=== PATIENT | female | born 2000 | race Caucasian/White ===

== ENCOUNTER 2024-02-05 01:41 | Inpatient (IN) ==
[2024-02-05] MEDS ORDERED: LIDOCAINE 1% LOCAL 20 ML VIAL INFIL PRN (01:50)
[2024-02-05] MEDS ORDERED: miSOPROStoL 25 MCG TAB PO ONE (02:00)
--- NOTE | 2024-02-05 02:03 | Labor Progress Brief Note ---
Date of Service February 05, 2024 Subjective @ 40w3d with SROM, followed by onset of ctx roughly Q3 per pt. No VB, good FM. Preg c/b RH neg. Assessment & Plan (1) PROM (premature rupture of membranes): Plan Will admit, labs, epidural prn. Discussed options of either pitocin or cytotec PO. Assuming the first bit of tracing we gather does not show contractions too frequent, would prefer cytotec 25mcg PO as first step. Physical Exam Genitourinary: /-2 ROM for clear fluid confirmed. FHT just getting on monitor, appears 140 mod domo. Woody just beginning to trace. Coding Level of Care Code None Diagnoses PROM (premature rupture of membranes) O42.90
--- NOTE | 2024-02-05 02:58 | Communication Note ---
Date of Service: February 05, 2024 Patient chantell Q2-3m, too frequently for cytotec to be administered. Will ambulate instead as she is getting more uncomfortable and hoping to move around for pain mgmt at this time. If cervix has not changed on future assessment can use pitocin prn, but hopefully the increased discomfort means we don't need augmentation just yet.
[2024-02-05 03:45] LABS: Hematocrit (blood only) 34.1 % (37.0-47.0); Hemoglobin 11.6 g/dl (12.0-16.0); Mean Corpuscular Hemoglobin 30.2 pg (25.0-34.0); Mean Corpuscular Volume 88.8 fL (80.0-100.0); Mean Platelet Volume 11.2 fL (9.4-12.4); Platelet Count 192 K/uL (130-400); RDW Coefficient of Variation 14.3 % (11.5-14.5); Red Blood Count 3.84 M/uL (4.20-5.40); White Blood Count 9.21 K/ul (4.8-10.8)
--- NOTE | 2024-02-05 08:32 | Labor Progress Brief Note ---
Date of Service February 05, 2024 Subjective Getting more uncomfortable, may want epidural soon. Assessment & Plan (1) PROM (premature rupture of membranes): Plan Early labor; patient prefers ambulation and expectant management. Consider pitocin after epidural which patient is considering. Admission and Anticipated Discharge Date Admission Date: February 05, 2024 Physical Exam Genitourinary: /-2 LOF clear continues FHT Cat 1 [place] Q2-3 Results & Data Vital Signs (Past 12 Hours) Vital Signs Temp Pulse Resp BP 02/05/24 07:43 18 02/05/24 07:43 18 02/05/24 07:30 98.2 F 16 02/05/24 07:15 79 123/73 02/05/24 05:48 98.4 F 85 18 120/69 02/05/24 02:00 67 123/73 02/05/24 01:59 18 02/05/24 01:59 98.1 F 18 Coding Level of Care Code None Diagnoses PROM (premature rupture of membranes) O42.90
--- NOTE | 2024-02-05 12:57 | Anesthesiology Consultation ---
Date of Service February 05, 2024 Assessment & Plan Chart Review Chart Review: Acceptable Risk for Surgery, Patient NOT seen in Pre Admission Testing and Acceptable Risk for Labor Epidural Consults Requested none ASA ASA2 Proposed Anesthesia Anesthesia Type: Labor Epidural and CSE History Height/Weight Height: 5 ft 2 in Weight: 66.678 kg Allergies Allergy/AdvReac Type Severity Reaction Status Date / Time No Known Allergies Allergy Verified 02/05/24 02:02 Medications Home Medications Medication Instructions Recorded Confirmed Last Taken ferrous sulfate 325 mg (65 mg 325 mg PO DAILY 02/05/24 02/05/24 02/04/24 iron) tablet (iron) vits no.124-ferrous fum 1 tab PO DAILY 02/05/24 02/05/24 02/04/24 27 mg iron-folic acid 800 mcg tablet ( Vitamin) Past Medical History Medical History Patient denies significant medical history gerd Anemia Exercise / Class Metabolic Activity II 4-5 Yardwork/Stairs/Walk up hill Past Family History Family History Denies family history of Ovarian cancer Breast cancer Colorectal cancer Past Surgical History Surgical History S/P appendectomy Past Anesthesia History No Hx of Anesthesia Complications and No Family Hx of Anesthesia Complications History of PONV No Hx of PONV and No Hx of Motion Sickness Social History Smoking Status: Never smoker Do You Dip or Chew Tobacco: No Hx Alcohol Use: No Hx Substance Use: No substance use type: does not use Physical Exam Vital Signs Last Vital Signs Temp 36.8 C 02/05/24 09:37 Pulse 71 02/05/24 12:32 Resp 20 02/05/24 11:29 BP 119/75 02/05/24 12:32 Testing Laboratory Results 02/05/24 02:35
[2024-02-05] MEDS: LACTATED RINGER'S 1,000 ML IV PRN (15:51)
[2024-02-05] MEDS: LIDOCAINE 2%/EPINEPHRINE 1:200,000 20 ML PF ONE (17:36)
[2024-02-05] MEDS: fentANYL 2 MCG/ML BUPIVacaine 0.125%-NSS 100ML BAG ONE (17:36)
[2024-02-05] MEDS: BUPIVACAINE 0.25% PF 30 ML VIAL ONE (17:36)
[2024-02-05] MEDS: fentaNYL citrate PF 100 MCG/2 ML VIAL ONE (17:36)
[2024-02-05] MEDS ORDERED: ROPIVACAINE 0.5% PF 5 MG/ML 20 ML VIAL EPI PRN (17:47)
[2024-02-05] MEDS ORDERED: LIDOCAINE 2% MPF LOCAL 5 ML VIAL EPI PRN (17:47)
[2024-02-05] MEDS ORDERED: SODIUM CHLORIDE 0.9% PF INJ 10 ML VIAL EPI PRN (17:47)
[2024-02-05] MEDS ORDERED: fentaNYL citrate PF 100 MCG/2 ML VIAL EPI PRN (17:47)
[2024-02-05] MEDS ORDERED: BUPIVACAINE 0.25% PF 30 ML VIAL EPI PRN (17:47)
[2024-02-05] MEDS ORDERED: PROMETHAZINE HCL 6.25 MG in SODIUM CHLORIDE 0.9% 50 ML IV PRN (17:47)
[2024-02-05] MEDS ORDERED: ONDANSETRON INJ 2 MG/ML 2 ML VIAL IV PRN (17:47)
[2024-02-05] MEDS ORDERED: NALOXONE HCL 1 MG in SODIUM CHLORIDE 0.9% 1,000 ML IV PRN (17:47)
[2024-02-05] MEDS ORDERED: ePHEDrine sulfate 50 MG/ML AMP IV PRN (17:47)
[2024-02-05] MEDS ORDERED: NALBUPHINE HCL 5 MG in SYRINGE 0 ML IV PRN (17:47)
[2024-02-05] MEDS ORDERED: NALOXONE HCL 0.4 MG/1 ML VIAL/CARP IV PRN (17:47)
--- NOTE | 2024-02-05 17:59 | Labor Progress Brief Note ---
Date of Service February 05, 2024 Subjective Patient had been admitted after rupture of membranes, hoping to progress naturally and wanted to be able to ambulate etc. Had been chantell, however she has gotten to the point of requesting epidural. After epidural, she was comfortable and agreeable to cervix exam. 4/80/-2. Given minimal cervical change throughout the day today, I recommended that she start pitocin - she agreed. FHT Cat 1. Afebrile. Assessment & Plan Admission and Anticipated Discharge Date Admission Date: February 05, 2024 Results & Data Vital Signs (Past 12 Hours) Vital Signs Temp Pulse Resp BP Pulse Ox 02/05/24 17:55 119 H 95 02/05/24 17:54 75 126/73 02/05/24 17:52 77 125/72 02/05/24 17:50 98 02/05/24 17:50 97 H 02/05/24 17:50 88 128/65 02/05/24 17:48 114 H 113/67 02/05/24 17:45 120 H 98 02/05/24 17:44 120 H 127/74 02/05/24 17:42 96 H 127/82 02/05/24 17:40 98 02/05/24 17:40 88 02/05/24 17:40 76 118/72 02/05/24 17:37 81 121/80 02/05/24 17:35 97 H 133/86 98 02/05/24 17:34 94 H 132/87 02/05/24 17:30 104 H 98 02/05/24 17:25 84 99 02/05/24 17:20 89 98 02/05/24 17:15 69 98 02/05/24 17:10 85 98 02/05/24 17:05 74 99 02/05/24 17:00 87 100 02/05/24 16:59 79 127/84 02/05/24 15:47 20 02/05/24 15:47 20 02/05/24 13:52 75 119/73 02/05/24 13:51 36.6 C 02/05/24 12:32 71 119/75 02/05/24 11:30 36.8 C 02/05/24 11:29 20 02/05/24 11:29 20 02/05/24 10:54 85 119/82 02/05/24 10:02 02/05/24 10:02 02/05/24 09:37 36.8 C 02/05/24 08:38 20 02/05/24 08:38 02/05/24 07:43 18 02/05/24 07:43 02/05/24 07:30 36.8 C 16 02/05/24 07:15 79 123/73 Coding Level of Care Code None
[2024-02-05] MEDS: SODIUM CHLORIDE 0.9% PF INJ 10 ML VIAL ONE (18:08)
[2024-02-05] MEDS: LIDOCAINE 2%/EPINEPHRINE 1:200,000 20 ML PF EPI STA (18:08)
[2024-02-05] MEDS: fentaNYL citrate PF 100 MCG/2 ML VIAL EPI STA (18:08)
[2024-02-05] MEDS: BUPIVACAINE 0.25% PF 30 ML VIAL EPI STA (18:08)
[2024-02-05] MEDS: SODIUM CHLORIDE 0.9% PF INJ 10 ML VIAL EPI STA (18:09)
[2024-02-05] MEDS: OXYTOCIN 30 UNITS/NSS 30 UNITS/500 ML BAG IV PRN (18:34)
[2024-02-05] MEDS: diphenhydrAMINE 50 MG/ML VIAL IV PRN (18:36)
[2024-02-05] MEDS: ePHEDrine sulfate 50 MG/ML AMP ONE (21:07)
--- NOTE | 2024-02-06 00:41 | Labor Progress Brief Note ---
Date of Service February 06, 2024 Subjective Comfortable with epidural, not feeling ctx. Afebrile. FHT Cat 1 [place] Q 2 SVE 6/90/0 Continue labor/augmentation. Assessment & Plan Admission and Anticipated Discharge Date Admission Date: February 05, 2024 Results & Data Vital Signs (Past 12 Hours) Vital Signs Temp Pulse Resp BP Pulse Ox 02/06/24 00:35 61 97 02/06/24 00:30 60 97 02/06/24 00:28 72 108/59 L 02/06/24 00:25 56 L 97 02/06/24 00:20 62 96 02/06/24 00:15 60 97 02/06/24 00:13 57 L 103/59 L 02/06/24 00:10 64 96 02/06/24 00:05 58 L 97 02/06/24 00:00 64 96 02/05/24 23:57 57 L 102/56 L 02/05/24 23:55 63 96 02/05/24 23:50 67 96 02/05/24 23:45 64 96 02/05/24 23:42 54 L 108/59 L 02/05/24 23:40 70 97 02/05/24 23:35 80 96 02/05/24 23:30 68 97 02/05/24 23:27 56 L 109/57 L 02/05/24 23:25 62 96 02/05/24 23:20 69 96 02/05/24 23:15 63 96 02/05/24 23:13 56 L 107/55 L 02/05/24 23:10 57 L 97 02/05/24 23:05 57 L 97 02/05/24 23:00 60 97 02/05/24 22:57 74 111/68 02/05/24 22:55 66 97 02/05/24 22:50 71 97 02/05/24 22:45 72 97 02/05/24 22:42 75 114/70 02/05/24 22:40 60 97 02/05/24 22:35 75 97 02/05/24 22:32 16 02/05/24 22:32 36.9 C 16 02/05/24 22:30 67 97 02/05/24 22:28 62 100/56 L 02/05/24 22:25 75 96 02/05/24 22:20 89 96 02/05/24 22:15 68 96 02/05/24 22:13 64 100/54 L 02/05/24 22:10 63 96 02/05/24 22:05 64 96 02/05/24 22:00 70 96 02/05/24 21:58 67 104/58 L 02/05/24 21:55 70 96 02/05/24 21:50 72 96 02/05/24 21:45 67 97 02/05/24 21:42 80 112/59 L 02/05/24 21:40 67 98 02/05/24 21:35 78 97 02/05/24 21:30 62 98 02/05/24 21:27 61 109/58 L 02/05/24 21:25 63 98 02/05/24 21:20 67 98 02/05/24 21:15 63 98 02/05/24 21:14 75 105/59 L 02/05/24 21:10 69 98 02/05/24 21:05 97 H 98 02/05/24 21:00 92 H 100 02/05/24 20:57 88 16 125/83 02/05/24 20:55 88 99 02/05/24 20:50 77 100 02/05/24 20:45 74 100 02/05/24 20:42 71 118/74 02/05/24 20:40 68 98 02/05/24 20:35 59 L 100 02/05/24 20:30 100 02/05/24 20:30 72 02/05/24 20:30 70 121/73 02/05/24 20:25 71 99 02/05/24 20:20 85 99 02/05/24 20:15 84 98 02/05/24 20:12 75 16 108/71 02/05/24 20:10 86 96 02/05/24 20:05 62 96 02/05/24 20:00 59 L 96 02/05/24 19:57 61 114/59 L 02/05/24 19:55 63 97 02/05/24 19:50 60 96 02/05/24 19:45 62 96 02/05/24 19:42 75 100/56 L 02/05/24 19:40 59 L 96 02/05/24 19:35 60 96 02/05/24 19:30 62 96 02/05/24 19:28 55 L 108/60 02/05/24 19:25 58 L 96 02/05/24 19:20 56 L 97 02/05/24 19:15 77 97 02/05/24 19:12 81 115/69 02/05/24 19:10 63 97 02/05/24 19:05 83 98 02/05/24 19:00 18 02/05/24 19:00 18 02/05/24 19:00 16 02/05/24 19:00 37.1 C 77 16 100 02/05/24 18:57 68 110/63 02/05/24 18:55 59 L 97 02/05/24 18:50 68 98 02/05/24 18:45 59 L 99 02/05/24 18:42 55 L 125/73 02/05/24 18:40 69 100 02/05/24 18:35 76 98 02/05/24 18:30 71 20 98 02/05/24 18:27 67 121/75 02/05/24 18:25 86 99 02/05/24 18:20 97 H 98 02/05/24 18:15 98 H 98 02/05/24 18:12 83 127/55 L 02/05/24 18:10 98 02/05/24 18:10 76 02/05/24 18:10 94 H 162/78 H 02/05/24 18:06 73 120/62 02/05/24 18:05 69 97 02/05/24 18:01 102 H 128/57 L 02/05/24 18:00 92 H 18 97 02/05/24 17:56 18 02/05/24 17:56 18 02/05/24 17:55 119 H 95 02/05/24 17:54 75 126/73 02/05/24 17:52 77 125/72 02/05/24 17:51 18 02/05/24 17:51 18 02/05/24 17:50 98 02/05/24 17:50 97 H 02/05/24 17:50 88 128/65 02/05/24 17:48 114 H 113/67 02/05/24 17:46 18 02/05/24 17:46 18 02/05/24 17:45 120 H 98 02/05/24 17:44 120 H 127/74 02/05/24 17:42 96 H 127/82 02/05/24 17:40 98 02/05/24 17:40 88 02/05/24 17:40 76 118/72 02/05/24 17:37 81 121/80 02/05/24 17:35 97 H 133/86 98 02/05/24 17:34 94 H 132/87 02/05/24 17:30 36.8 C 104 H 98 02/05/24 17:25 84 99 02/05/24 17:20 89 98 02/05/24 17:15 69 98 02/05/24 17:10 85 98 02/05/24 17:05 74 99 02/05/24 17:00 87 100 02/05/24 16:59 79 127/84 02/05/24 15:47 20 02/05/24 15:47 20 02/05/24 15:30 36.7 C 02/05/24 13:52 75 119/73 02/05/24 13:51 36.6 C Coding Level of Care Code None
[2024-02-06] MEDS: fentANYL 2 MCG/ML BUPIVacaine 0.125%-NSS 100ML BAG EPI PRN (02:32)
--- NOTE | 2024-02-06 03:19 | Labor Progress Brief Note ---
Date of Service February 06, 2024 Subjective Patient has progressed to almost complete dilation - thin rim of cervix on maternal right side - feels urge to push, feels much better with pushing. Cervix retracted with pushing. FHT 140s, moderate variability, +accels, one deceleration returning to baseline with O2, repositioning and temporarily stopping pitocin. station 2+ Continue pushing. Assessment & Plan Admission and Anticipated Discharge Date Admission Date: February 05, 2024 Results & Data Vital Signs (Past 12 Hours) Vital Signs Temp Pulse Resp BP Pulse Ox 02/06/24 03:13 94 02/06/24 03:13 127 H 02/06/24 03:13 109 H 144/89 H 02/06/24 03:10 117 H 100 02/06/24 03:05 95 H 100 02/06/24 03:00 86 100 02/06/24 02:59 81 132/80 02/06/24 02:55 77 99 02/06/24 02:50 58 L 97 02/06/24 02:45 57 L 97 02/06/24 02:42 18 02/06/24 02:42 36.7 C 72 18 121/74 02/06/24 02:40 75 97 02/06/24 02:35 76 97 02/06/24 02:30 64 97 02/06/24 02:27 68 98/53 L 02/06/24 02:25 64 97 02/06/24 02:20 62 97 02/06/24 02:15 90 98 02/06/24 02:12 105 H 102/59 L 02/06/24 02:10 75 96 02/06/24 02:05 76 96 02/06/24 02:00 65 97 02/06/24 01:57 60 100/53 L 02/06/24 01:55 66 96 02/06/24 01:50 79 97 02/06/24 01:45 90 97 02/06/24 01:42 68 103/56 L 02/06/24 01:40 71 97 02/06/24 01:35 85 97 02/06/24 01:30 62 97 02/06/24 01:27 78 107/56 L 02/06/24 01:25 75 97 02/06/24 01:20 72 97 02/06/24 01:15 68 97 02/06/24 01:13 66 105/58 L 02/06/24 01:10 65 97 02/06/24 01:05 79 98 02/06/24 01:00 83 97 02/06/24 00:57 105 H 103/56 L 02/06/24 00:55 76 97 02/06/24 00:50 18 02/06/24 00:50 36.6 C 89 18 98 02/06/24 00:45 77 97 02/06/24 00:42 86 112/71 02/06/24 00:40 92 H 98 02/06/24 00:35 61 97 02/06/24 00:30 60 97 02/06/24 00:28 72 108/59 L 02/06/24 00:25 56 L 97 02/06/24 00:20 62 96 02/06/24 00:15 60 97 02/06/24 00:13 57 L 103/59 L 02/06/24 00:10 64 96 02/06/24 00:05 58 L 97 02/06/24 00:00 64 96 02/05/24 23:57 57 L 102/56 L 02/05/24 23:55 63 96 02/05/24 23:50 67 96 02/05/24 23:45 64 96 02/05/24 23:42 54 L 108/59 L 02/05/24 23:40 70 97 02/05/24 23:35 80 96 02/05/24 23:30 68 97 02/05/24 23:27 56 L 109/57 L 02/05/24 23:25 62 96 02/05/24 23:20 69 96 02/05/24 23:15 63 96 02/05/24 23:13 56 L 107/55 L 02/05/24 23:10 57 L 97 02/05/24 23:05 57 L 97 02/05/24 23:00 60 97 02/05/24 22:57 74 111/68 02/05/24 22:55 66 97 02/05/24 22:50 71 97 02/05/24 22:45 72 97 02/05/24 22:42 75 114/70 02/05/24 22:40 60 97 02/05/24 22:35 75 97 02/05/24 22:32 16 02/05/24 22:32 36.9 C 16 02/05/24 22:30 67 97 02/05/24 22:28 62 100/56 L 02/05/24 22:25 75 96 02/05/24 22:20 89 96 02/05/24 22:15 68 96 02/05/24 22:13 64 100/54 L 02/05/24 22:10 63 96 02/05/24 22:05 64 96 02/05/24 22:00 70 96 02/05/24 21:58 67 104/58 L 02/05/24 21:55 70 96 02/05/24 21:50 72 96 02/05/24 21:45 67 97 02/05/24 21:42 80 112/59 L 02/05/24 21:40 67 98 02/05/24 21:35 78 97 02/05/24 21:30 62 98 02/05/24 21:27 61 109/58 L 02/05/24 21:25 63 98 02/05/24 21:20 67 98 02/05/24 21:15 63 98 02/05/24 21:14 75 105/59 L 02/05/24 21:10 69 98 02/05/24 21:05 97 H 98 02/05/24 21:00 92 H 100 02/05/24 20:57 88 16 125/83 02/05/24 20:55 88 99 02/05/24 20:50 77 100 02/05/24 20:45 74 100 02/05/24 20:42 71 118/74 02/05/24 20:40 68 98 02/05/24 20:35 59 L 100 02/05/24 20:30 100 02/05/24 20:30 72 02/05/24 20:30 70 121/73 02/05/24 20:25 71 99 02/05/24 20:20 85 99 02/05/24 20:15 84 98 02/05/24 20:12 75 16 108/71 02/05/24 20:10 86 96 02/05/24 20:05 62 96 02/05/24 20:00 59 L 96 02/05/24 19:57 61 114/59 L 02/05/24 19:55 63 97 02/05/24 19:50 60 96 02/05/24 19:45 62 96 02/05/24 19:42 75 100/56 L 02/05/24 19:40 59 L 96 02/05/24 19:35 60 96 02/05/24 19:30 62 96 02/05/24 19:28 55 L 108/60 02/05/24 19:25 58 L 96 02/05/24 19:20 56 L 97 02/05/24 19:15 77 97 02/05/24 19:12 81 115/69 02/05/24 19:10 63 97 02/05/24 19:05 83 98 02/05/24 19:00 18 02/05/24 19:00 18 02/05/24 19:00 16 02/05/24 19:00 37.1 C 77 16 100 02/05/24 18:57 68 110/63 02/05/24 18:55 59 L 97 02/05/24 18:50 68 98 02/05/24 18:45 59 L 99 02/05/24 18:42 55 L 125/73 02/05/24 18:40 69 100 02/05/24 18:35 76 98 02/05/24 18:30 71 20 98 02/05/24 18:27 67 121/75 02/05/24 18:25 86 99 02/05/24 18:20 97 H 98 02/05/24 18:15 98 H 98 02/05/24 18:12 83 127/55 L 02/05/24 18:10 98 02/05/24 18:10 76 02/05/24 18:10 94 H 162/78 H 02/05/24 18:06 73 120/62 02/05/24 18:05 69 97 02/05/24 18:01 102 H 128/57 L 02/05/24 18:00 92 H 18 97 02/05/24 17:56 18 02/05/24 17:56 18 02/05/24 17:55 119 H 95 02/05/24 17:54 75 126/73 02/05/24 17:52 77 125/72 02/05/24 17:51 18 02/05/24 17:51 18 02/05/24 17:50 98 02/05/24 17:50 97 H 02/05/24 17:50 88 128/65 02/05/24 17:48 114 H 113/67 02/05/24 17:46 18 02/05/24 17:46 18 02/05/24 17:45 120 H 98 02/05/24 17:44 120 H 127/74 02/05/24 17:42 96 H 127/82 02/05/24 17:40 98 02/05/24 17:40 88 02/05/24 17:40 76 118/72 02/05/24 17:37 81 121/80 02/05/24 17:35 97 H 133/86 98 02/05/24 17:34 94 H 132/87 02/05/24 17:30 36.8 C 104 H 98 02/05/24 17:25 84 99 02/05/24 17:20 89 98 02/05/24 17:15 69 98 02/05/24 17:10 85 98 02/05/24 17:05 74 99 02/05/24 17:00 87 100 02/05/24 16:59 79 127/84 02/05/24 15:47 20 02/05/24 15:47 20 02/05/24 15:30 36.7 C Coding Level of Care Code None
[2024-02-06] MEDS: OXYTOCIN 30 UNITS/NSS 30 UNITS/500 ML BAG IV PRN (04:26)
--- NOTE | 2024-02-06 04:46 | Delivery Summary ---
Vaginal Delivery Summary Date of Service February 06, 2024 Vaginal Delivery Summary and 2nd Degree LAC Vaginal Delivery Summary: Pre-delivery diagnoses: 24yo @ 42 /, PROM, Rh negative, rubella equivocal Post-delivery diagnoses: same Procedure: spontaneous vaginal delivery, repair of 2nd degree laceration Surgeon: Anali Arriaga DO Complications: none Findings: Viable male . Apgars and weight pending, please see nursery records Quantative blood loss: 172cc Description of delivery: The patient progressed to complete with epidural anesthesia. She then began to push. She spontaneously vaginally delivered a viable from the cephalic presentation. The head delivered in KOBI position. The anterior shoulder and arm delivered, followed by the posterior shoulder, followed by the body. The baby was placed on mother's abdomen and a spontaneous cry was heard. Delayed cord clamping was employed, and the cord was doubly clamped and cut. Cord blood was obtained. The placenta was delivered spontaneously intact with a 3-vessel cord. The uterus and vagina were swept of clots and debris. IV pitocin was given. The uterus became firm. The cervix, vagina, and perineum were inspected and a 2nd degree perineal laceration was noted. It extended to, but not through the anal sphincter muscle. A [id number] 3-0 Chromic suture was used to support the anterior aspect of the anal sphincter. The remaining 2nd degree laceration was repaired with 3-0 Vicryl in standard fashion. Posterior vaginal wall friable - multiple raw edges with bleeding, even with multiple [id number] suture placements. Therefore, Pao powder was applied and vaginal packing was placed. Hernandez catheter placed. Excellent hemostasis was observed. The mother and baby are recovering in stable and good condition in the room. Sponge, needle and instrument counts were correct x 2. Anali Arriaga DO [facility] [place] Delivery Charge Vaginal Delivery Codes: 16183 global code for the antepartum, delivery, and post- Delivery Type Details: and 2nd Degree LAC
[2024-02-06] MEDS ORDERED: HYDROCORTISONE ACETATE 25 MG SUPP PR PRN ×2 (05:03→09:29)
[2024-02-06] MEDS ORDERED: MEASLES, MUMPS & RUBELLA VIRUS VACCINE (MMR) 0.5ML VIAL SQ ONE (05:03)
[2024-02-06] MEDS ORDERED: oxyCODONE/ACETAMINOPHEN 5mg/325mg TAB PO PRN (05:03)
[2024-02-06] MEDS ORDERED: OXYTOCIN 30 UNITS/NSS 30 UNITS/500 ML BAG IV PRN (05:03)
[2024-02-06] MEDS: IBUPROFEN 600 MG TAB PO PRN (07:42)
[2024-02-06] MEDS: DOCUSATE SODIUM 100 MG CAP PO SCH (07:42)
[2024-02-06] MEDS: PRENATAL VITAMIN 1 TAB PO SCH (07:42)
--- NOTE | 2024-02-06 08:02 | Anesthesia Procedure Note ---
Date of Service February 06, 2024 Anesthesia Post Epidural Note Vital Signs Vital Signs: Temp Pulse Resp BP Pulse Ox 36.7 C 92 H 16 115/66 97 02/06/24 02:42 02/06/24 07:44 02/06/24 06:42 02/06/24 07:44 02/06/24 04:45 Notes Mental Status: alert / awake / arousable Nausea / Vomiting: adequately controlled Pain: adequately controlled Airway Patency, RR, SpO2: stable & adequate BP & HR: stable & adequate Hydration State: stable & adequate Neuraxial Anesthesia: was administered and sensory block is resolving Anesthetic Complications: no major complications apparent Epidural: Removed without complications and With tip intact
--- NOTE | 2024-02-06 08:27 | Obstetrical Progress Note ---
Date of Service February 06, 2024 Assessment & Plan (1) (spontaneous vaginal delivery): PPD#0 doing well. Vaginal packing removed, mayen catheter removed. Has already had epidural removed. Will monitor for 1 more hour at L&D to eval for bleeding, then plans for move to unit. Subjective Ambulation: limited ambulation Voiding: no voiding problems and mayen catheter in place Diet Tolerance:: regular diet Lochia:: Moderate Review of Systems All systems reviewed & are unremarkable except as noted in HPI & below Physical Exam Constitutional WD/WN, vitals as above no acute distress Respiratory normal respiratory effort Cardiovascular Rate/Rhythm: regular rate and regular rhythm Gastrointestinal (Abdomen) Inspection/Auscultation: abdomen normal to inspection; abdomen not distended Percussion/Palpation: abdomen soft Genitourinary OB Exam Abdomen: + fundal height Fundus: + firm; not tender Results & Data Vital Signs (Past 12 Hours) Vital Signs Temp Pulse Resp BP Pulse Ox 02/06/24 07:44 92 H 115/66 02/06/24 07:40 20 02/06/24 07:20 89 108/65 02/06/24 06:42 16 02/06/24 06:42 88 105/55 L 02/06/24 06:26 116 H 105/67 02/06/24 06:11 16 02/06/24 06:11 102 H 108/68 02/06/24 05:57 101 H 105/72 02/06/24 05:42 16 02/06/24 05:42 101 H 100/68 02/06/24 05:26 16 02/06/24 05:26 88 107/66 02/06/24 05:12 18 02/06/24 05:12 85 111/68 02/06/24 04:57 18 02/06/24 04:57 104 H 114/70 02/06/24 04:45 105 H 97 02/06/24 04:42 83 117/78 02/06/24 04:41 18 02/06/24 04:40 91 H 97 02/06/24 04:35 96 H 97 02/06/24 04:33 103 H 92 02/06/24 04:30 92 H 99 02/06/24 04:26 106 H 124/73 02/06/24 04:25 100 H 96 02/06/24 04:20 106 H 99 04/21/24 04:15 101 H 98 02/06/24 04:12 103 H 119/73 02/06/24 04:10 106 H 98 02/06/24 04:05 116 H 97 02/06/24 04:00 144 H 98 02/06/24 03:55 128 H 97 02/06/24 03:50 109 H 98 02/06/24 03:47 112 H 91 02/06/24 03:45 133 H 96 02/06/24 03:43 110 H 123/59 L 02/06/24 03:42 113 H 92 02/06/24 03:40 145 H 96 02/06/24 03:35 100 H 98 02/06/24 03:31 105 H 88 L 02/06/24 03:30 97 H 96 02/06/24 03:27 109 H 120/66 02/06/24 03:25 104 H 98 02/06/24 03:20 92 H 99 02/06/24 03:19 128 H 93 02/06/24 03:15 111 H 99 02/06/24 03:13 94 02/06/24 03:13 127 H 02/06/24 03:13 109 H 144/89 H 02/06/24 03:10 117 H 100 02/06/24 03:05 95 H 100 02/06/24 03:00 86 100 02/06/24 02:59 81 132/80 02/06/24 02:55 77 99 02/06/24 02:50 58 L 97 02/06/24 02:45 57 L 97 02/06/24 02:42 18 02/06/24 02:42 36.7 C 72 18 121/74 02/06/24 02:40 75 97 02/06/24 02:35 76 97 02/06/24 02:30 64 97 02/06/24 02:27 68 98/53 L 02/06/24 02:25 64 97 02/06/24 02:20 62 97 02/06/24 02:15 90 98 02/06/24 02:12 105 H 102/59 L 02/06/24 02:10 75 96 02/06/24 02:05 76 96 02/06/24 02:00 65 97 02/06/24 01:57 60 100/53 L 02/06/24 01:55 66 96 02/06/24 01:50 79 97 02/06/24 01:45 90 97 02/06/24 01:42 68 103/56 L 02/06/24 01:40 71 97 02/06/24 01:35 85 97 02/06/24 01:30 62 97 02/06/24 01:27 78 107/56 L 02/06/24 01:25 75 97 02/06/24 01:20 72 97 02/06/24 01:15 68 97 02/06/24 01:13 66 105/58 L 02/06/24 01:10 65 97 02/06/24 01:05 79 98 02/06/24 01:00 83 97 02/06/24 00:57 105 H 103/56 L 02/06/24 00:55 76 97 02/06/24 00:50 18 02/06/24 00:50 36.6 C 89 18 98 02/06/24 00:45 77 97 02/06/24 00:42 86 112/71 02/06/24 00:40 92 H 98 02/06/24 00:35 61 97 02/06/24 00:30 60 97 02/06/24 00:28 72 108/59 L 02/06/24 00:25 56 L 97 02/06/24 00:20 62 96 02/06/24 00:15 60 97 02/06/24 00:13 57 L 103/59 L 02/06/24 00:10 64 96 02/06/24 00:05 58 L 97 02/06/24 00:00 64 96 02/05/24 23:57 57 L 102/56 L 02/05/24 23:55 63 96 02/05/24 23:50 67 96 02/05/24 23:45 64 96 02/05/24 23:42 54 L 108/59 L 02/05/24 23:40 70 97 02/05/24 23:35 80 96 02/05/24 23:30 68 97 02/05/24 23:27 56 L 109/57 L 02/05/24 23:25 62 96 02/05/24 23:20 69 96 02/05/24 23:15 63 96 02/05/24 23:13 56 L 107/55 L 02/05/24 23:10 57 L 97 02/05/24 23:05 57 L 97 02/05/24 23:00 60 97 02/05/24 22:57 74 111/68 02/05/24 22:55 66 97 02/05/24 22:50 71 97 02/05/24 22:45 72 97 02/05/24 22:42 75 114/70 02/05/24 22:40 60 97 02/05/24 22:35 75 97 02/05/24 22:32 16 02/05/24 22:32 36.9 C 16 02/05/24 22:30 67 97 02/05/24 22:28 62 100/56 L 02/05/24 22:25 75 96 02/05/24 22:20 89 96 02/05/24 22:15 68 96 02/05/24 22:13 64 100/54 L 02/05/24 22:10 63 96 02/05/24 22:05 64 96 02/05/24 22:00 70 96 02/05/24 21:58 67 104/58 L 02/05/24 21:55 70 96 02/05/24 21:50 72 96 02/05/24 21:45 67 97 02/05/24 21:42 80 112/59 L 02/05/24 21:40 67 98 02/05/24 21:35 78 97 02/05/24 21:30 62 98 02/05/24 21:27 61 109/58 L 02/05/24 21:25 63 98 02/05/24 21:20 67 98 02/05/24 21:15 63 98 02/05/24 21:14 75 105/59 L 02/05/24 21:10 69 98 02/05/24 21:05 97 H 98 02/05/24 21:00 92 H 100 02/05/24 20:57 88 16 125/83 02/05/24 20:55 88 99 02/05/24 20:50 77 100 02/05/24 20:45 74 100 02/05/24 20:42 71 118/74 02/05/24 20:40 68 98 02/05/24 20:35 59 L 100 02/05/24 20:30 100 02/05/24 20:30 72 02/05/24 20:30 70 121/73
[2024-02-06] MEDS ORDERED: BENZOCAINE 20% SPRY 85 APPLN/85 GM CAN EXT PRN (09:29)
[2024-02-06] MEDS: BENZOCAINE 20% SPRY 85 APPLN/85 GM CAN EXT PRN (09:58)
[2024-02-06] MEDS: DIPHTHER/TETAN/PERTUS Vaccine (Tdap, Adol/Adult) 0.5mL IM ONE (10:20)
[2024-02-06] MEDS: BENZOCAINE 20% SPRY 85 APPLN/85 GM CAN EXT ONE (10:21)
[2024-02-06] MEDS: ACETAMINOPHEN 325 MG TAB PO PRN (14:50)
--- NOTE | 2024-02-07 06:20 | Obstetrical Progress Note ---
Date of Service February 07, 2024 Assessment & Plan (1) care and examination: Plan Doing well Encourage ambulation Pain control Admission and Anticipated Discharge Date Admission Date: February 05, 2024 Supervising Physician Co-Signing Physician Notes Resident Physician Supervision Note: I interviewed and examined the patient. Discussed with Dr. Landrum and agree with findings and plan as documented in the note. Any exceptions or clarifications are listed here: PPD1 doing well. No concerns. Desires DC home, reviewed instructions. Followup 6w PP. Documented By: Anali Arriaga, Subjective 24 yo post day 1 s/p Ambulation: ambulating normally Voiding: no voiding problems Passing Gas:: Yes Diet Tolerance:: regular diet Lochia:: Small Current Pain Level: minimal Resting comfortably this AM in NAD. Denies MILLS, CP, SOB, N/V/D, LE pain/swelling. Review of Systems Review of Systems: reviewed, per HPI Physical Exam Physical Exam: General: patient resting comfortably, NAD, non-toxic in appearance, AA&O x 4, answers questions appropriately. Skin: warm, dry, intact HEENT: NC/AT, anicteric sclera, conjunctiva without injection, moist mucus membranes. Heart: +S1/S2, regular, no m/r/g Lungs: equal air entry bilaterally, no rales/rhonchi/wheezes Abd: +BS, soft, NT/ND, uterine fundus firm at umbilicus, caesarean incision C/D/I. Ext: warm, no clubbing/cyanosis or edema, [place]'s neg. Neuro: nonfocal, patient AA&O x 4, speech intact, no facial droop, moving all extremities on command. Results & Data Vital Signs (Past 12 Hours) Vital Signs Temp Pulse Pulse Resp BP BP Pulse Ox 02/07/24 04:15 36.5 C 74 18 107/70 98 02/06/24 22:39 36.6 C 62 18 97/61 L 98 02/06/24 19:04 36.3 C L 80 18 123/77 99 O2 Del Method 02/07/24 04:15 Room Air 02/06/24 22:39 Room Air 02/06/24 19:04 Room Air Resident Activity Tracking Resident Involvement: Resident Care Provided Care Provided: Adult [facility]
[2024-02-07 06:33] LABS: Hematocrit (blood only) 27.2 % (37.0-47.0); Hemoglobin 9.4 g/dl (12.0-16.0)
[2024-02-07] MEDS ORDERED: bisacodyL 5 MG TABEC PO SCH (20:00)
[2024-02-08] MEDS ORDERED: bisacodyL 10 MG SUPP PR PRN
== END 2024-02-07 10:30 | disposition home or self-care (01) | DRG 807 ==
LOC: OPB 01:41 → 4S1 01:43 → 4E2 02-06 10:47